=== PATIENT | male | born 1970 ===

== ENCOUNTER → 2018-08-18 16:31 | Outpatient (REF) | payer OTHER, SELFPAY ==
[2018-08-18 16:50] LABS: Add Manual Diff / Slide Review NO; Basophils Percent Auto 0.8 % (0-2); Eosinophils Percent Auto 0.2 % (2-4); Hematocrit 48.4 % (41-53); Hemoglobin 16.4 g/dL (13.5-17.5); Lymphocytes Percent Auto 18.3 % (25-40); Mean Corpuscular HGB Conc 33.8 % (30-36); Mean Corpuscular Hemoglobin 30.9 PG (26-34); Mean Corpuscular Volume 91.4 fL (80-100); Monocytes Percent Auto 6.1 % (3-14); Neutrophils Absolute Auto 5500 /uL (1500-7000); Neutrophils Percent Auto 74.6 % (50-75); Platelet Count 297 X10^3/uL (150-400); Red Cell Distribution Width 13.3 % (11.6-14.8); White Blood Cell Count 7.4 X10^3/uL (4.5-11.0)
[2018-08-21 12:24] LABS: PSA Total 1.21 ng/mL (< 4.01)
[2018-08-21 15:20] LABS: Estradiol 35 pg/mL (< 40)
[2018-08-25 14:14] LABS: Sex Hormone Binding Globulin 25 nmol/L (10-50); Testosterone Free 182.5 pg/mL (35.0-155.0); Testosterone Total 861 ng/dL (250-1100)
== END ==
LOC: LAB 16:31
PROVIDERS: Visit Provider Physician Assistant
DX: E29.1 Testicular hypofunction (principal); E06.3 Autoimmune thyroiditis
CPT/HCPCS: 36415; 82670; 84153; 84154; 84270; 84402; 84403; 85025